=== PATIENT | female | born 1960 | race Caucasian/White ===

== ENCOUNTER 2017-08-03 12:22 | Emergency (ER) | payer BC ==
[~2017-08-03] VITALS: Ht 154.9 cm; Wt 65.8 kg
[2017-08-03 12:32] VITALS: BP_SYST 147
[2017-08-03 13:21] VITALS: BP_SYST 131
== END 2017-08-03 13:14 | disposition home or self-care (01) ==
LOC: SED 12:22
DX: S61.012A Laceration without foreign body of left thumb without damage to nail, initial encounter (principal); I10 Essential (primary) hypertension; E11.40 Type 2 diabetes mellitus with diabetic neuropathy, unspecified; G47.00 Insomnia, unspecified; E03.9 Hypothyroidism, unspecified; Z90.710 Acquired absence of both cervix and uterus; W45.8XXA Other foreign body or object entering through skin, initial encounter; Y93.89 Activity, other specified; Y92.89 Other specified places as the place of occurrence of the external cause; Y99.8 Other external cause status
CPT/HCPCS: 99283